=== PATIENT | female | born 1945 | race Caucasian/White ===

== ENCOUNTER → 2017-02-06 13:46 | Outpatient (CLI) | payer MEDICARE, BC ==
[2014-11-14 14:30] VITALS: BMI 34.6
[~2017-02-06 13:46] MED LIST: CELEXA20 MG PO; DYRENIUM50 MG PO; FLUTICASONE PRO16 GM NASAL; OMEGA 3 FISH OI1 CAP PO; POTASSIUM99 M1 PO; PRILOSEC20 MG PO; TOPROL XL25 MG PO
== END | disposition home or self-care (01) ==
LOC: D.CT 13:46
DX: N28.1 Cyst of kidney, acquired (principal); R93.5 Abnormal findings on diagnostic imaging of other abdominal regions, including retroperitoneum

== ENCOUNTER → 2019-06-17 08:23 | Outpatient (CLI) | payer MEDICARE, BC ==
[2014-11-14 14:30] VITALS: BMI 34.6
== END | disposition home or self-care (01) ==
LOC: D.HCCARDIO 08:23
PROVIDERS: ATTEND Internal Medicine Cardiovascular Disease
DX: I20.9 Angina pectoris, unspecified (principal)

== ENCOUNTER 2019-08-31 11:01 | Outpatient (CLI) | payer MEDICARE, BC ==
[~2019-08-31] VITALS: Ht 160 cm; Wt 87.7 kg
--- NOTE | ~2019-08-31 | HEMODYNAMI ---
PATIENT:RENITA LANCE MEDICAL RECORD: [id number] : 47 LOCATION:D.CAT ADMISSION DATE: 08/31/19 Generatedon:08/31/201913:26 Patient name: RENITA LANCE Patient #: [id number] SSN: [id number] : 1945 Date of study: 08/31/2019 Page: Of Hemodynamic Procedure Report Patient Data Patient Demographics Procedure consent was obtained First Name: RENITA Gender: Female Last Name: CASI : 1945 Middle Initial: LINDSEY Age: 74 year(s) Patient #: [id number] Race: SSN: [id number] Additional ID: [id number] Contact details Address: [place] [address] State: [place] City: [place] Zip code: [address] Past Medical History Performed procedures and imaging results Date Procedure Procedure Results Comments 06/17/2019 Stress testing Positive->Intermediate with SPECT MPI risk Allergies Allergen Reaction Date Comments Reported Codeine 11/14/2014 Other allergy 11/14/2014 AVOCADO, GUAIFEINN, POTASSIUM, GUAIACOSULFONATE Other allergy 08/31/2019 AVOCADO, CODEINE, ASPIRIN Admission Admission Data Admission Date: 08/31/2019 Admission Time: 11:01 Arrival Date: 08/31/2019 Arrival Time: 0:00 Admit Source: Other Insurance Payor: Medicare [facility] #: [id number] Height (in.): 63 BSA: 1.91 (m2) Height (cm.): 160.02 BMI: 34.26 (kg/m2) Weight (lbs.): 193.39 Weight (kg.): 87.72 Lab Results Lab Result Date: 08/31/2019 Lab Result Time: 0:00 Biochemistry Name Units Result Min Max BUN mg/dl 10 --(-*--)-- 7 18 Creatinine mg/dl 0.9 --(-*--)-- 0.6 1.3 eGFR ml/min 64.48562 *-(----)-- 90 120 NONAFRICAN CBC Name Units Result Min Max Hematocrit % 35.9 *-(----)-- 42 54 Hemoglobin g/dl 12.2 *-(----)-- 13.5 17.5 Procedure Procedure Types Cath Procedure Diagnostic Procedure [facility] w/Coronaries Sedation Charges Moderate Sedation up to 30 minutes Procedure Description Procedure Date Procedure Date: 08/31/2019 Procedure Start Time: 13:09 Procedure End Time: 13:25 Procedure Staff Name Function Collins Metcalf MD Performing Physician Prince Vale RN Nurse Carlene Ospina RT Monitor Martin Haas RT Scrub Procedure Data Cath Procedure Fluoroscopy Diagnostic fluoroscopy Total fluoroscopy Time: 1.6 time: 1.6 min min Diagnostic fluoroscopy Total fluoroscopy dose: 397 dose: 397 mGy mGy Contrast Material Contrast Material Type Amount (ml) Isovue 370 67 Entry Location Entry Primary Successful Side Size Upsize Upsize Entry Closure Sharpe ccessful Closure Location (Fr) 1 (Fr) 2 (Fr) Remarks Device Remarks Radial Right 6 Fr Manual UNABLE artery Short Compression TO ADVANCE SHEATH Femoral Right 5 Fr Exoseal artery Estimated blood loss: 5 ml Diagnostic catheters Device Type Used For End Catheter Placement MULTIPACK JL 4.0 5Fr Procedure catheter MULTIPACK 3DRC 5Fr Procedure catheter MULTIPACK Pigtail 5 Fr Procedure catheter Procedure Complications No complications Procedure Medications Medication Administration Route Dosage 0.9% NaCl I.V. 100 ml/hr Oxygen etCO2 Nasal cannula 2 l/min Heparin Flush Bag added to field 2 bags (1000units/500ml NS) Lidocaine 2% added to field 20 Radial Cocktail added to field 1 syringe (Verapamil 2mg/Nitro 400mcg/Heparin 1500units) Benadryl I.V. 50 mg Versed I.V. 2 mg Fentanyl I.V. 100 mcg Versed I.V. 1 mg Versed I.V. 1 mg Hemodynamics Rest BSA: 1.91 (m2) HGB: 12.2 (g/dl) O2 Consumption: Estimated: 161.09 (ml/min) O2 Co nsumption indexed: Estimated:84.34 (ml/min/m) Heart Rate: 51 (bpm) Pressure Samples Time Site Value (mmHg) Purpose Heart Use Rate(bpm) 13:21 LV 43/2,0 Snapshot 96 Gradients Valve Time Site Site Mean SEP/DFP Peak To Heart Use 1 2 (mmHg) (sec/min) Peak Rate (mmHg) (bpm) Aortic 13:22 LV AO 73 Snapshots Pre Cath Intra NCS Post Cath Vital Signs Time Heart Resp SPO2 etCO2 NIBP (mmHg) Rhythm Pain Sedation Rate (ipm) (%) (mmHg) Status Level (bpm) 12:42:42 55 15 92 40.3 130/63(95) NSR 0 (11) 10(A) , No pain 12:47:02 54 13 85 26.8 124/68(89) NSR 0 (11) 10(A) , No pain 12:51:18 56 16 90 23.8 128/66(110) NSR 0 (11) 10(A) , No pain 12:55:36 59 16 92 33.6 135/67(91) NSR 0 (11) 10(A) , No pain 12:59:58 59 16 93 34.3 143/66(109) NSR 0 (11) 10(A) , No pain 13:04:18 57 15 94 25.4 135/71(92) NSR 0 (11) 10(A) , No pain 13:08:36 58 17 98 32.8 154/80(101) NSR 0 (11) 10(A) , No pain 13:12:58 60 18 99 0 147/77(92) NSR 0 (11) 10(A) , No pain 13:17:25 61 17 99 37.3 143/68(103) NSR 0 (11) 9(A) , No pain 13:21:41 86 19 99 35.8 140/73(97) NSR 0 (11) 9(A) , No pain 13:26:01 67 26 99 32.8 142/75(94) NSR 0 (11) 9(A) , No pain Medications Time Medication Route Dose Verified Delivered Reason Notes E ffectiveness by by 12:41:14 0.9% NaCl I.V. 100 Prince Prince Per ml/hr Kavin Vale physician RN RN 12:41:24 Oxygen etCO2 2 l/min Prince Prince for low 02 Nasal Kavin Vale sats cannula RN RN 12:41:35 Heparin Flush added 2 bags Prince Prince used for Bag to Lorigan Lorigan procedure (1000units/500ml field RN RN NS) 12:41:44 Lidocaine 2% added 20ml Prince Prince for local to vial Lorigan Lorigan anesthetic field RN RN 12:41:56 Radial Cocktail added 1 Prince Prince used for (Verapamil to syringe Lorigan Lorigan procedure 2mg/Nitro field RN RN 400mcg/Heparin 1500units) 12:48:22 Benadryl I.V. 50 mg Prince Prince Per Lorigan Lorigan physician RN RN 12:48:32 Versed I.V. 2 mg Prince Prince for Lorigan Lorigan sedation RN RN 12:48:40 Fentanyl I.V. 100 mcg Prince Prince for Lorigan Lorigan sedation RN RN 13:11:22 Versed I.V. 1 mg Prince Prince for Lorigan Lorigan sedation RN RN 13:15:57 Versed I.V. 1 mg Prince Prince for Lorigan Lorigan sedation RN police officer Log Time Note 12:07:37 Informed consent obtained and on chart 12:07:59 Diagnostic Cath Status : Elective 12:08:12 Arrival Date: 08/31/2019 12:00:00 AM 12:08:16 Insurance Payor : Medicare 12:10:56 Patient Height : 63 inches 12:11:00 Patient Weight : 193.39 lbs 12:11:39 Lab Result : Hematocrit 35.9 % 12:11:39 Lab Result : Hemoglobin 12.2 g/dl 12:11:47 Admit Source: Other 12:11:56 ACC Patient presents with Stable Angina CCS Anginal Class 2--Slight limitation of ordinary activity. 12:12:01 Procedure Status Elective Heart Cath (OP). 12:12:03 Time tracking: Regular hours (M-F 7:00 - 5:00) 12:12:08 Plan of Care:Hemodynamics will remain stable., Cardiac rhythm will remain stable., Comfort level will be maintained., Respiratory function will remain adequate., Patient/ family verbilizes understanding of procedure., Procedure tolerated without complication., Recovers from procedure without complications.. 12:12:11 Pre-procedure instructions explained to patient. 12:12:12 Pre-op teaching completed and patient verbalized understanding. 12:12:13 Family unavailable. 12:12:15 Patient NPO since Midnight. 12:12:43 Stress Test: yes; abnormal ANTERIOR WALL 12:12:59 Lab results completed and on chart. 12:15:31 Patient allergic to Other allergyAVOCADO, CODEINE, ASPIRIN 12:18:03 Lab Result : Creatinine 0.9 mg/dl 12:18:03 Lab Result : BUN 10 mg/dl 12:18:03 Lab Result : eGFR NONAFRICAN 64.22680 ml/min 12:18:25 Alarms reviewed by R. N. 12:18:25 Sharps counted by scrub and verified by R.N. 12:18:34 2) 60-89 Mildly reduced kidney function, and other findings (as for stage 1) point to kidney disease. 12:18:36 Maximum allowable contrast dose (3.7 X eGFR X 0.75)180 ml. 12:19:12 Prince Vale RN sent for patient. Start room use. 12:23:25 Patient received from Pre/Post Procedure Room to CCL 1 Alert and oriented. Tansferred to table in Supine position. 12:23:26 Warm blankets applied, and veronika hugger turned on for patient comfort. 12:23:27 Correct patient and procedure confirmed by team. 12:23:27 ECG and BP/O2 sat monitors applied to patient. 12:39:55 Is the patient allergic to Iodine/contrast media? No. 12:39:57 Was the patient premedicated? Yes 12:39:59 Is patient on blood thinner?No 12:40:01 Patient diabetic? No. 12:40:03 If diabetic: On Metformin? N/A 12:40:52 Patient not . Patient is over age 55. 12:40:53 ----Pre-sedation anethsthesia assessment.---- 12:41:06 Previous problem with sedation/anesthesia? No ? 12:41:08 Snore? Yes 12:41:09 Sleep apnea? No 12:41:11 Deviated septum? No 12:41:12 Opens mouth fully? Yes 12:41:13 Sticks out tongue? Yes 12:41:14 0.9% NaCl 100 ml/hr I.V. was administered by Prince Vale RN; Per physician; Verbal order read back and verified. 12:41:15 Airway obstruction? No ? 12:41:18 Dentures? No ? 12:41:21 Pre procedure: right dorsailis pedis pulse 2+ Normal; easily identifiable; not easily obliterated 12:41:22 Modified Durga's test Ulnar < 7 seconds 12:41:24 Oxygen 2 l/min etCO2 Nasal cannula was administered by Prince Vale RN; for low 02 sats; Verbal order read back and verified. 12:41:25 Patient pain scale 0/10 ?. 12:41:31 IV patent on arrival in left antecubital with 0.9% NaCl at [facility]. 12:41:34 Vital chart was started 12:41:35 Heparin Flush Bag (1000units/500ml NS) 2 bags added to field was administered by Prince Vale RN; used for procedure; Verbal order read back and verified. 12:41:35 Full Disclosure recording started 12:41:37 Baseline sample Acquired. 12:41:40 Rhythm: sinus bradycardia 12:41:44 Lidocaine 2% 20ml vial added to field was administered by Prince Vale RN; for local anesthetic; Verbal order read back and verified. 12:41:49 Right Radial & Right Groin area was prepped with chlora-prep and draped in sterile fashion 12:41:56 Radial Cocktail (Verapamil 2mg/Nitro 400mcg/Heparin 1500units) 1 syringe added to field was administered by Prince Vale RN; used for procedure; Verbal order read back and verified. 12:42:09 Use device set Radial Dx or PCI 12:42:17 ACIST Syringe (62040) opened to sterile field. 12:42:17 Medline Cath Pack ([id number]) opened to sterile field. 12:42:18 Bag Decanter (2002) opened to sterile field. 12:42:19 ACIST Hand Control (00053) opened to sterile field. 12:42:19 ACIST Manifold (30079) opened to sterile field. 12:42:21 MBrace Wrist Support ([id number]) opened to sterile field. 12:42:23 EMERALD Guide Wire (279-211) opened to sterile field. 12:42:24 SHEATH 6FR RAIN ([id number]) opened to sterile field. 12:42:30 --------ALL STOP TIME OUT------ 12:42:45 Sedation plan: IV Moderate Sedation Medication:Versed, Fentanyl 12:45:33 Right Radial & Right Groin site verified by team. 12:45:37 Fire Safety Assessment: A--An alcohol-based skin anteseptic being used preoperatively., C--Open oxygen or nitrous oxide is being used., D--An ESU, laser, or fiber-optic light is being used. 12:45:40 Final Timeout: patient, procedure, and site verified with staff and physician. All members of the team are in agreement. 12:45:41 Physical assessment completed. ASA score P 2 - A patient with mild systemic disease as per Collins Metcalf MD. 12:48:22 Benadryl 50 mg I.V. was administered by Prince Vale RN; Per physician; Verbal order read back and verified. 12:48:32 Versed 2 mg I.V. was administered by Prince Vale RN; for sedation; Verbal order read back and verified. 12:48:40 Fentanyl 100 mcg I.V. was administered by Prince Vale RN; for sedation; Verbal order read back and verified. 12:49:06 H&P Date Dictated: 08/31/2019 New H&P dictated by physician.. 13:09:19 Procedure started. 13:09:27 Local anesthetic to right radial artery with Lidocaine 2% by Collins Metcalf MD.INITIAL ACCESS ONLY 13:10:09 A 6 Fr Short sheath was inserted into the Right Radial artery 13:11:22 Versed 1 mg I.V. was administered by Prince Vale RN; for sedation; Verbal order read back and verified. 13:14:01 UNABLE TO GAIN ACCESS THRU RAIDAL GOING RT GROIN.. 13:14:18 Local anesthetic to right femoral artery with Lidocaine 2% by Collins Metcalf MD.ADDITIONAL ACCESS 13:14:26 Use device set Multipack Set 13:14:38 SHEATH 5FR [place] (KTO113) opened to sterile field. 13:14:40 DIAGNOSTIC Multipack 5Fr catheter set (TZ0670) opened to sterile field. 13:15:08 A 5 Fr sheath was inserted into the Right Femoral artery 13:15:16 Zero performed for pressure channel P1 13:15:28 A MULTIPACK JL 4.0 5Fr catheter was advanced over the wire and used for Procedure. 13:15:57 Versed 1 mg I.V. was administered by Prince Vale RN; for sedation; Verbal order read back and verified. 13:17:01 LCA angiography performed. 13:17:07 Injector settings: Ml/sec: 3, Volume: 6, 13:18:32 Catheter removed. 13:18:38 A MULTIPACK 3DRC 5Fr catheter was advanced over the wire and used for Procedure. 13:19:25 RCA angiography performed. 13:19:29 Injector settings: Ml/sec: 3, Volume: 6, 13:20:09 Catheter removed. 13:20:16 A MULTIPACK Pigtail 5 Fr catheter was advanced over the wire and used for Procedure. 13:21:40 LV hemodynamics recorded. 13:21:42 LV gram done using SEARS 13:21:47 Injector settings: Ml/sec: 10, Volume: 20, 13:22:07 EF : 55 % 13:22:13 Catheter removed. 13:22:55 EXOSEAL 5Fr (EX500) opened to sterile field. 13:23:06 Sheath removed intact; hemostasis achieved with Exoseal to the Right Femoral artery. 13:23:17 Sheath removed intact; hemostasis achieved with Manual Compression to the Right Radial artery. 13:23:20 Procedure ended.(Physican Out) 13:23:40 Fluoroscopy time 01.60 minutes. 13:23:45 Fluoroscopy dose: 397 mGy 13:23:45 Flurop Dose total: 397 13:23:50 Dose Area Product 10594 mGy/cm. 13:23:54 Contrast amount:Isovue 370 67ml. 13:23:57 Maximum allowable dose exceeded? No. 13:23:57 Sharps counted by scrub and verified by R.N. 13:24:06 Post-op/insertion site Right Radial artery dressed using a Bandaid. 13:24:10 Post-op/insertion site Right Femoral artery dressed using a 4 x 4 and Tegaderm. 13:24:12 Post Procedure Pulses reassessed and unchanged 13:24:15 Post procedure: right dorsailis pedis pulse 2+ Normal; easily identifiable; not easily obliterated. 13:24:19 Post-procedure physical assessment completed. ASA score P 2 - A patient with mild systemic disease as per Collins Metcalf MD. 13:24:22 Post procedure rhythm: unchanged. 13:24:25 Estimated blood loss: 5 ml 13:24:27 Post procedure instruction explained to patient.Patient verbalizes understanding. 13:24:28 Patient needs reinforcement of post procedure teaching. 13:24:49 Procedure type changed to Cath procedure, Diagnostic procedure, LHC, [facility] w/Coronaries, Sedation Charges, Moderate Sedation up to 30 minutes 13:25:04 Procedure and supply charges have been captured, reviewed, submitted and are correct. 13:25:08 Procedure Complication : No complications 13:25:12 [facility] Findings: mild to moderate CAD (<70%) 13:25:16 Operative report dictated upon procedure completion. 13:25:17 See physician's report for complete and final results. 13:25:21 Vital chart was stopped 13:25:24 Report given to Pre/Post Procedure Room. 13:25:28 Patient transfered to Pre/Post Procedure Room with Stretcher. 13:25:30 Procedure ended. 13:25:30 Full Disclosure recording stopped 13:25:40 End room use (Document Last) 13:25:51 End room use (Document Last) 13:26:16 End room use (Document Last) Device Usage Item Name Manufacture Quantity Catalog Hospital Part Current Minima l Lot# / Number Charge Number Stock Stock Serial# Code ACIST Acist 1 14082 826022 356593 127270 20 Syringe Medical (89166) Systems Inc Medline Medline 1 [id number] 178862 84849 213301 5 Cath Pack ([id number]) Bag Microtek 1 552031 20559 254356 5 Decanter Medical Inc. () ACIST Hand Acist 1 26874 108795 891669 947535 5 Control Medical (12133) Systems Inc ACIST Acist 1 47293 943198 696218 586684 5 Manifold Medical (70890) Systems Inc MBrace Advanced 1 140-0250-00 355436 39490 032077 5 Wrist Vascular Support Dynamics ([id number]) EMERALD Cardinal 1 502-455 237617 500723 075440 5 Guide Wire Health (502-455) SHEATH 6FR Cardinal 1 0748552 126866 1000043 634962 5 [facility] (3904046) SHEATH 5FR Terumo 1 XZA517 940468 364005 638199 5 [place] (XLA699) DIAGNOSTIC Cardinal 1 XI3769 342858 17694 048242 30 Multipack Health 5Fr catheter set (QJ7088) MULTIPACK Cardinal 1 219831 5 JL 4.0 5Fr Health catheter MULTIPACK Cardinal 1 408299 5 3DRC 5Fr Health catheter MULTIPACK Cardinal 1 203029 5 Pigtail 5 Health Fr catheter EXOSEAL 5Fr Cardinal 1 EX500 124597 762979 973968 10 (EX500) Health Signature Audit [place] Stage Time Signature Unsigned Intra-Procedure 08/31/2019 Carlene Ospina 1:25:51 PM RT(R) Intra-Procedure 08/31/2019 Prince 1:26:16 PM Kavin MALLOY Intra-Procedure 08/31/2019 Collins Vogel 1:26:36 PM Anup [facility] [address] [id number]
[2019-08-31] MEDS ORDERED: FISH OIL 1,0001 CA1 PO (11:30)
[2019-08-31] MEDS ORDERED: PROTONIX40 MG PO (11:31)
[2019-08-31] MEDS ORDERED: GLEEVEC100 MG PO (11:32)
[2019-08-31] MEDS ORDERED: FLUTICASONE PRO16 GM NASAL (11:33)
[2019-08-31] MEDS ORDERED: TRIAMTERENE-HC1 EAC6 PO (11:33)
[2019-08-31] MEDS ORDERED: CYANOCOBAL1000 MCG/4 SC (11:33)
[2019-08-31 11:36] VITALS: BP 128/71; Ht 160 cm; Wt 87.7 kg
[2019-08-31 12:00] LABS: BASOPHILS 0.2 % (0-2); EOSINOPHILS 1.6 % (0-7); HEMATOCRIT 35.9 % (36.0-48.0); HEMOGLOBIN 12.2 g/dL (12-16); IMMATURE GRANULOCYTES 0.2 % (0-5); LYMPHOCYTES 34.8 % (15-50); MCH 34.7 pg (26.0-34.0); MEAN PLATELET VOLUME 8.7 fL (7.4-10.4); MONOCYTES 9.2 % (2-11); PLATELET COUNT 258 10x3/uL (130-400); RBC 3.52 10x6/uL (4.00-5.40); RDW 13.3 % (11.5-14.5); WBC 5.8 10x3/uL (4.8-10.8)
[2019-08-31 12:14] LABS: ANION GAP 9.3 mmol/L (8-16); CALCIUM 8.6 mg/dL (8.5-10.1); CARBON DIOXIDE 29.8 mmol/L (21.0-32.0); CREATININE - SERUM 0.9 mg/dL (0.6-1.3); LDL-HDL RATIO 0.7 ratio (1.5-3.5); POTASSIUM - SERUM 4.1 mmol/L (3.5-5.1)
--- NOTE | 2019-08-31 13:40 | NUR ---
PT ARRIVED BY STRETCHER. PLACED ON MONITORS. ASSESSMENT COMPLETED. VSS.
--- NOTE | 2019-08-31 13:55 | NUR ---
PT RESTING COMFORTABLY. VSS. RIGHT GROIN DRESSING C/D/I. NO S/S OF HEMATOMA NOTED. CALL LIGHT WITHIN REACH. NO NEEDS AT THIS TIME.
--- NOTE | 2019-08-31 14:31 | NUR ---
RIGHT GROIN DRESSING C/D/I. NO S/S OF HEMATOMA NOTED. HEAD OF BED INC TO 30 DEGREES. TOLERATED WELL. SET UP WITH SANDWICH TRAY AND DRINK. DENIES NAUSEA/PAIN AT THIS TIME. WILL CONTINUE TO MONITOR.
--- NOTE | 2019-08-31 15:00 | NUR ---
PT SITTING UP IN BED. CALL LIGHT WITHIN REACH. FINISHED HER SANDWICH AND DRINK. DENIES NAUSEA/PAIN. RIGHT GROIN DRESSING C/D/I. NO S/S OF HEMATOMA NOTED. CALL LIGHT WITHIN REACH.
--- NOTE | 2019-08-31 15:20 | NUR ---
PIV D/C'D WITH CATH TIP INTACT. TOLERATED WELL. VSS. RIGHT GROIN DRESSING C/D/I. NO S/S OF HEMATOMA NOTED. PT INSTRUCTED TO GET UP AND DRESSED AT THIS TIME. DISCUSSED DISCHARGE INSTRUCTIONS WITH PT. SHE VOICED UNDERSTANDING.
--- NOTE | 2019-08-31 15:30 | NUR ---
PT AMBULATED TO RESTROOM. VOIDED WITHOUT DIFFICULTY. STEADY GAIT NOTED. PT TAKEN DOWN TO VEHICLE BY WHEELCHAIR. NO S/S OF DISTRESS NOTED. ALL BELONGINGS AND PAPERWORK IN HAND.
--- NOTE | 2019-09-02 08:17 | OP ---
PATIENT NAME: RENITA LANCE MEDICAL RECORD: [id number] :47 LOCATION:D.CAT ADMISSION DATE: SURGEON: ELY MCGINNIS MD DATE OF OPERATION: 08/31/2019 PROCEDURE: Left heart catheterization, selective coronary angiography, right femoral artery approach. CATHETERS: A 5-Salvadorean sheath, 5/4 left and right Emery, 5/4 pig. The procedure was well tolerated. The patient was returned to the pressley. Sheath removed. ExoSeal device placed. FINDINGS: Left ventriculography in 30-degree SEARS view: Normal wall motion and normal systolic function. CORONARY ANATOMY: LEFT MAIN: Left main is free of disease. LAD: Free of disease in the diagonal system. CIRCUMFLEX: Free of disease in the marginal system. RIGHT CORONARY ARTERY: Dominant artery, gives rise to the PDA, free of disease. IMPRESSION: Normal LV systolic function, normal coronary anatomy. TRANSINT:[id number] Voice Confirmation ID: [id number] DOCUMENT ID: [id number] ELY MCGINNIS MD at 0817 CC: [id number] DICTATION DATE: 08/31/19 1336 INSPECTOR PRECISION: 08/31/19 1737 DEP CLI 08/31/19 [facility] [address] [place] [address]
--- NOTE | 2019-09-02 08:17 | HP ---
PATIENT: RENITA LANCE MEDICAL RECORD: [id number] ACCOUNT: [id number] LOCATION:SHIRA : 47 ADMISSION DATE: 08/31/19 PCP: JAYME RAM DO HISTORY AND PHYSICAL EXAMINATION HISTORY OF PRESENT ILLNESS: A 74-year-old female with no known history of coronary artery disease, has a history of hypertension as well as dyslipidemia, was admitted with angina radiating to the jaw, subsequently underwent Cardiolite stress testing which showed reversibility of the anterior wall. Consider for diagnostic angiography. PAST MEDICAL HISTORY: Includes history of hypertension. ALLERGIES: CODEINE. MEDICATIONS: Include Gleevec, metoprolol 25 mg p.o. every day, potassium 10 mEq every day, Dyazide 37.5/25 every day. PHYSICAL EXAMINATION: GENERAL: Pleasant female in no acute distress, appears stated age. HEENT: Normocephalic and atraumatic. NECK: No JVD or bruit. HEART: Regular. LUNGS: [place] clear. ABDOMEN: Soft, nontender. EXTREMITIES: Pulse 2+ and equal. No edema. IMPRESSION: Angina with positive noninvasive studies. PLAN: For angiography, intervention based on the above. TRANSINT:[id number] Voice Confirmation ID: [id number] DOCUMENT ID: [id number] ELY MCGINNIS MD at 0817 CC: [id number] DICTATION DATE: 08/31/19 1251 TILE SETTER APPRENTICE: 08/31/19 1309 DEP CLI 08/31/19 [id number] [place] [address]
== END 2019-08-31 15:30 | disposition home or self-care (01) ==
LOC: D.CATH 11:01
PROVIDERS: ATTEND Internal Medicine Interventional Cardiology
DX: I20.9 Angina pectoris, unspecified (principal); I10 Essential (primary) hypertension; R94.31 Abnormal electrocardiogram [ECG] [EKG]; R09.89 Other specified symptoms and signs involving the circulatory and respiratory systems; R01.1 Cardiac murmur, unspecified; E78.5 Hyperlipidemia, unspecified